=== PATIENT | female | born 2005 | race Caucasian/White ===

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

== ENCOUNTER 2025-06-28 10:08 | Emergency (ER) | payer OTHER, SELFPAY ==
[2025-06-28 10:15] VITALS: BP 156/116; PULSE 111; RESP 20; TEMP 36.6; O2SAT 94
--- NOTE | 2025-06-28 10:23 | ED_ITS ---
HPI - Nausea/Vomiting/Diarrhea 2 General: Chief complaint: Nausea/Vomiting/Diarrhea Stated complaint: N,V ABD pain Time Seen by Provider: 06/28/25 10:19 Source: patient Mode of arrival: ambulatory Limitations: no limitations History of Present Illness: 19-year-old female with a history of cyc lical vomiting syndrome. States she started vomiting roughly 2 hours ago and has had multiple episodes of vomiting she has severe abdominal cramping as well she denies any fever denies any diarrhea denies any worsening improving factors. Associated nausea: Yes Associated symtoms: Reports nausea; Denies chest pain or headache(s) Related Data Home Medications ?Medication ?Instructions ?Recorded ?Confirmed scopolamine base 1 mg over 3 days 1 patch transdermal Q3D PRN 08/19/23 09/01/24 transdermal patch aprepitant 80 mg capsule 80 mg PO .twice weekly 04/1209/01/24 Previous Rx's ?Medication ?Instructions ?Recorded acetaminophen 325 mg capsule 325 mg PO QID PRN pain #6 0 caps 05/16/20 prochlorperazine maleate 5 mg 5 mg PO QID PRN nausea a nd 10/09/22 tablet (Compazine) vomiting #20 tabs prochlorperazine 25 mg rectal 25 mg MS BID PRN nausea and 12/18/22 suppository (Compazine) vomiting #12 ea promethazine 25 mg rectal 25 mg MS Q6H PRN nausea and 03/04/23 suppository vomiting #12 ea rizatriptan 10 mg tablet See Rx Instructions .Route 0 04/05/23 .COMPLEX #7 tabs albuterol sulfate 90 mcg/actuation See Rx Instructions .Route 01/10/24 aerosol inhaler (Ventolin HFA) .COMPLEX #18 grams cetirizine 10 mg tablet (Zyrtec) 10 mg PO DAILY PRN al lergy 01/10/24 symptoms #90 tabs fluticasone propionate 50 See Rx Instructions .Route 0 03/13/24 mcg/actuation nasal .COMPLEX #16 grams spray,suspension medroxyprogesterone 150 mg/mL See Rx Instructions .Rou te 04/17/24 intramuscular syringe .COMPLEX #1 mL ondansetron 4 mg disintegrating 4 mg PO Q6H PRN nausea and 06/28/25 tablet vomiting #14 tabs Allergies Allergy/AdvReac Type Severity Reaction Status Date / Time No Known Allergies Allergy Verified 09/01/24 11:13 Review of Systems 2 Const: Denies: fever(s), chills, body aches or change in appetite ENMT: Denies: throat pain or dental pain Card: Denies: chest pain Resp: Denies: dyspnea GI: Reports: nausea and vomiting; Denies: abdominal pain or diarrhea Musc: Denies: neck pain or back pain Skin/Breast: Denies: rash Neuro: Denies: headache(s) PFSH ED 2 PFSH: Medical History Abdominal migraine Migraine with aura Cyclic vomiting syndrome Migraine headache Anxiety and depression Surgical History Inguinal hernia right side History of tonsillectomy and adenoidectomy Family History Mother Cervical cancer diagnosed at 18 or 19 with stage 2--- precancerous; did not have hyst or chemo Denies family history of Colon cancer Ovarian cancer Diabetes Breast cancer Hypertension Thyroid disease Stroke Social History Smoking and tobacco/nicotine status: current every day tobacco/nicotine user (VAPES) e-cigarettes E-Cigarette Details: vaporizer device Alcohol intake: never Substance/Drug Use: current Substance/Drug use frequency: daily Adopted: No Caregiver/support person: No Lives independently: No Household members: family Sexually active: Yes Do you think of yourself as: Straight/Heterosexual Current gender identity: Female Physical Exam 2 Const: COMMON NORMALS: patient oriented x3 and healthy appearing HENMT: COMMON NORMALS: normocephalic and atraumatic HEAD & SCALP: n ormocephalic and atraumatic Eye: COMMON NORMALS: conjunctivae normal CONJUNCTIVA: Yes conjunctivae normal Neck/C-Spine: COMMON NORMALS: full ROM and supple Chest: COMMONS NORMALS: normal inspection of the chest Resp: COMMON NORMALS: normal respiratory effort Cardio: COMMON NORMALS: regular rate, regular rhythm and No murmurs present (Cardio) RATE: regular rate RHYTHM: regular rhythm GI: COMMON NORMALS: Normal to inspection, nondistended, normoactive bowel sounds present, Soft to palpation, non-tender and no masses PALPATION: Yes Soft to palpation Extremity: COMMON NORMALS: normal to inspection and full ROM Neuro: COMMON NORMALS: patient oriented x3, moves all extremities and no focal motor deficits Psych: COMMON NORMALS: mental status grossly normal, Normal thought process present and cooperative THOUGHT PROCESS: Normal thought process present Skin: COMMON NORMALS: no rashes or lesions noted and no wounds GENERAL SKIN EXAM: no rashes or lesions noted Course 2 Vital Signs: Vital signs: Vital Signs Temperature 97.8 F 06/28/25 10:15 Pulse Rate 111 H 06/28/25 10:15 Respiratory Rate 20 H 06/28/25 10:15 Blood Pressure 156/116 06/28/25 10:15 Pulse Oximetry 94 06/28/25 10:15 Oxygen Delivery Me thod Room Air 06/28/25 10:15 MDM - Nausea/Vomiting/Diarrhea Medical Decision Making Patient presents here with nausea vomiting started this morning. Patient has a history of cyclical vomiting syndrome and this is the same as her typical symptoms. Patient has no abdominal tenderness she has no signs of appendicitis or cholecystitis or bowel obstruction she feels much improved here after Reglan Benadryl and fluids. She been able to tolerate p.o. here. I did go over her labs with her we will prescribe her Zofran for home she is to follow-up with PCP and return if worsening she understands agrees to plan Medical Records I reviewed the patient's medical records. Lab Data I reviewed the patient's lab results. 06/28/25 10:40 06/28/25 10:40 Laboratory Results WBC 16.36 10^3/uL (4.5-13.0) H 06/28/25 10:40 RBC 5.09 10^6/uL (3.85-5.65) 06/28/25 10:40 Hgb 13.80 g/dL (12.4-14.8) 06/28/25 10:40 Hct 43.0 % (36-47) 06/28/25 10:40 MCV 84.5 fl (85-98) L 06/28/25 10:40 MCH 27.1 pg (27-33) 06/28/25 10:40 MCHC 32.1 g/dL (30-55) 06/28/25 10:40 RDW 13.0 % (12.1-15.1) 06/28/25 10:40 Plt Count 370 10^3/cmm (157-399) 06/28/25 10:40 MPV 10.1 fL (7.4-10.4) 06/28/25 10:40 Neut % (Auto) 77.5 % 06/28/25 10:40 Lymph % (Auto) 15.5 % 06/28/25 10:40 Rapides % (Auto) 3.9 % 06/28/25 10:40 Eos % (Auto) 2.3 % 06/28/25 10:40 Baso % (Auto) 0.4 % 06/28/25 10:40 Neut # (Auto) 12.68 10^3/uL (1.8-8.0) H 06/28/25 10:40 Lymph # (Auto) 2.5 10^3/uL (1.5-6.5) 06/28/25 10:40 Rapides # (Auto) 0.6 10^3/uL (0.2-0.9) 06/28/25 10:40 Eos # (Auto) 0.4 10^3/uL (0.0-0.8) 06/28/25 10:40 Baso # (Auto) 0.1 10^3/uL (0.0-0.1) 06/28/25 10:40 Nucleated RBC % (auto) 0 % 06/28/25 10:40 Nucleated RBCs # 0.0 /100WBC 06/28/25 10:40 Sodium 140 mmol/L (136-145) 06/28/25 10:40 Potassium 3.9 mmol/L (3.5-5.1) 06/28/25 10:40 Chloride 108 mmol/L (98-107) H 06/28/25 10:40 Carbon Dioxide 19 mmol/L (22-29) L 06/28/25 10:40 Anion Gap 16.9 (5-19) 06/28/25 10:40 BUN 9 mg/dL (6-20) 06/28/25 10:40 Creatinine 0.6 mg/dL (0.5-0.9) 06/28/25 10:40 GFR Calculation 128.8 mL/min (90-130) 06/28/25 10:40 Glucose 128 mg/dL (65-115) H 06/28/25 10:40 Calculated Osmolality 290 mOsm/kg (285-295) 06/28/25 10:40 Calcium 9.3 mg/dL (8.5-10.5) 06/28/25 10:40 Total Bilirubin 0.2 mg/dL (0.15-1.2) 06/28/25 10:40 AST 13 U/L (0-32) 06/28/25 10:40 ALT 10 U/L (0-33) 06/28/25 10:40 Alkaline Phosphatase 53 U/L (35-105) 06/28/25 10:40 Total Protein 7.7 g/dL (6.6-8.7) 06/28/25 10:40 Albumin 4.4 g/dL (3.5-5.2) 06/28/25 10:40 Globulin 3.3 g/dL (1.3-4.6) 06/28/25 10:40 Lipase 33 U/L (13-60) 06/28/25 10:40 HCG, Qual Negative (Negative) 06/28/25 10:40 No radiology studies performed this visit Discharge Plan Discharge Patient Disposition: Home Clinical Impression: Cyclic vomiting syndrome Condition: Stable Prescriptions: New ondansetron 4 mg tablet,disintegrating 4 mg PO Q6H PRN (Reason: nausea and vomiting) Qty: 14 0RF No Action acetaminophen 325 mg capsule 325 mg PO QID PRN (Reason: pain) Qty: 60 0RF scopolamine base 1 mg over 3 days patch 3 day 1 patch transdermal Q3D PRN prochlorperazine maleate [Compazine] 5 mg tablet 5 mg PO QID PRN (Reason: nausea and vomiting) Qty: 20 0RF Rx Instructions: 1-2 tabs by mouth every 6-8 hours as needed for nausea and vomiting aprepitant 80 mg capsule 80 mg PO .twice weekly prochlorperazine [Compazine] 25 mg suppository 25 mg MS BID PRN (Reason: nausea and vomiting) Qty: 12 0RF rizatriptan 10 mg tablet See Rx Instructions .ROUTE .COMPLEX Qty: 7 1RF Dose Instruction: TAKE ONE TABLET BY MOUTH ONE TIME NEEDED FOR MIRGRAINE HEADACHE Rx Instructions: TAKE ONE TABLET BY MOUTH ONE TIME NEEDED FOR MIRGRAINE HEADACHE albuterol sulfate [Ventolin HFA] 90 mcg/actuation HFA aerosol inhaler See Rx Instructions .ROUTE .COMPLEX Qty: 18 0RF Dose Instruction: INHALE 1 PUFF FOUR TIMES DAILY NEEDED FOR SHORTNESS OF BREATH OR WHEEZING Rx Instructions: INHALE 1 PUFF FOUR TIMES DAILY NEEDED FOR SHORTNESS OF BREATH OR WHEEZING cetirizine [Zyrtec] 10 mg tablet 10 mg PO DAILY PRN (Reason: allergy symptoms) Qty: 90 0RF fluticasone propionate 50 mcg/actuation spray,suspension See Rx Instructions .ROUTE .COMPLEX Qty: 16 0RF Dose Instruction: SHAKE LIQUID AND USE 1 SPRAY IN EACH NOSTRIL DAILY Rx Instructions: SHAKE LIQUID AND USE 1 SPRAY IN EACH NOSTRIL DAILY medroxyprogesterone 150 mg/mL syringe See Rx Instructions .ROUTE .COMPLEX Qty: 1 0RF Dose Instruction: ADMINISTER 1 ML IN THE MUSCLE ONE TIME EVERY 13 WEEKS, CLEAN AREA WELL WITH ISOPROPYL ALCOHOL FIRST. Rx Instructions: ADMINISTER 1 ML IN THE MUSCLE ONE TIME EVERY 13 WEEKS, CLEAN AREA WELL WITH ISOPROPYL ALCOHOL FIRST. promethazine 25 mg suppository 25 mg MS Q6H PRN (Reason: nausea and vomiting) Qty: 12 0RF Discharge Orders: Discharge ED (Routine); Ordered 06/28/25 Ordered By: Radha Landa Referrals: Sandy Bravo FNP [Primary Care Provider, Family Practice] - 4-7 days Discharge Diet: Advance as tolerated Discharge Activity: Resume usual activity Patient Instructions: Acute Nausea and Vomiting (ED) Print Language: Liberian Coding Level of Care Code ED National Sales Manager for [employer]
[2025-06-28] MEDS: diphenhydrAMINE 50 mg/mL SDV 1mL IVP (10:45)
[2025-06-28] MEDS: metoclopramide 5 mg/mL SDV 2 mL 10 MG IVP (10:52)
[2025-06-28] MEDS: morphine 4 mg/mL SDV 1 mL IVP (10:54)
[2025-06-28 10:55] LABS: Hematocrit 43.0 % (36-47); Hemoglobin 13.80 g/dL (12.4-14.8); Mean Corpuscular HGB Conc 32.1 g/dL (30-55); Mean Corpuscular Hemoglobin 27.1 pg (27-33); Mean Corpuscular Volume 84.5 fl (85-98); Nucleated Red Blood Cells % 0 %; Platelet Count 370 10^3/cmm (157-399); Red Blood Count 5.09 10^6/uL (3.85-5.65); White Blood Count 16.36 10^3/uL (4.5-13.0)
[2025-06-28 11:06] LABS: HCG, Serum Qual Negative (Negative)
[2025-06-28 11:14] LABS: Alanine Aminotransferase 10 U/L (0-33); Albumin Level 4.4 g/dL (3.5-5.2); Alkaline Phosphatase 53 U/L (35-105); Anion Gap 16.9 (5-19); Aspartate Amino Transferase 13 U/L (0-32); Blood Urea Nitrogen 9 mg/dL (6-20); Calcium 9.3 mg/dL (8.5-10.5); Carbon Dioxide 19 mmol/L (22-29); Chloride 108 mmol/L (98-107); Creatinine Clr Calc Pharmacy 126.5960; Globulin 3.3 g/dL (1.3-4.6); Glucose 128 mg/dL (65-115); Lipase 33 U/L (13-60); Osmolality Calculated 290 mOsm/kg (285-295); Potassium 3.9 mmol/L (3.5-5.1); Sodium 140 mmol/L (136-145); Total Protein 7.7 g/dL (6.6-8.7)
[2025-06-28 12:17] VITALS: PULSE 78; O2SAT 95
== END 2025-06-28 12:18 | disposition home or self-care (01) ==
PROVIDERS: Emergency Provider Emergency Medicine; PCP Registered Nurse
DX: R11.15 Cyclical vomiting syndrome unrelated to migraine (principal); F17.290 Nicotine dependence, other tobacco product, uncomplicated
CPT/HCPCS: 36415; 80053; 83690; 84703; 85025; 96374; 96375; 99284; J1200; J2270; J2765; J7030

== ENCOUNTER → 2025-08-23 14:44 | Outpatient (BNVA) | payer OTHER, SELFPAY | PROVIDERS: PCP Registered Nurse; Visit Provider Nurse Practitioner Women's Health | DX: N92.6 Irregular menstruation, unspecified (principal) | CPT/HCPCS: 81025; 84702 ==